=== PATIENT | female | born 1990 | race Caucasian/White ===

== ENCOUNTER 2016-10-17 08:20 | Emergency (ER) | payer OTHER ==
[~2016-10-17 08:20] MED LIST: ACETAMINOPHEN PO; ADDERALL 10 MG10 M1 PO; ADVIL100 MG; ALBUTEROL17 GM; ALBUTEROL17 GM INH; ALLEGRA PO; ALPRAZOLAM PO; AMBIEN PO; AMOXICILLIN PO; AZO STANDARD97.5 MG PO; BACTRIM DS TABL1 TA1 PO; BENTYL10 M1 PO; BENZONATATE PO; CELEXA10 MG PO; CELEXA20 MG PO; CIPRO; CIPRO PO; CIPRO250 MG PO; CLARITIN10 M2 PO; CLARITIN10 MG PO; CLINDAMYCIN HC300 MG PO; DEPO-PROVER150 MG/ML INJ; DIFLUCAN PO; DOXYCYCLINE HY100 M3 PO; ELIMITE60 GM TOP; FLAGYL PO; FLEXERIL10 M1 PO; FLINTSTONES T100 MCG PO; HYDROCODON-ACE118 ML; IBUPROFEN PO; K-DUR20 ME1 PO; LIDOCAINE VISCOU1 ML EXT; LORCET PLUS TAB1 TA1 PO; MACROBID100 M1 PO; MACROBID100 MG DOB; MACROBID100 MG PO; MEDROL PO; METRONIDAZOLE PO; MIRALAX17 GM PO; MORGIDOX100 MG PO; MOTRIN600 M1 PO; NEURONTIN PO; NEURONTIN600 MG; NO MEDICATIONS; PHENERGAN25 M1 PO; PHENTERMINE PO; PRENATAL1 TA1 PO; PROGESTERONE; PYRIDIUM PO; PYRIDIUM100 MG PO; TYLENOL #3 PO; VOLTAREN75 MG PO; WELLBUTRIN PO; ZOFRAN ODT4 MG PO; ZOFRAN PO; ZOLOFT PO; ZYRTEC PO
[2016-10-17] MEDS ORDERED: VALIUM PO (08:26)
[2016-10-17] MEDS ORDERED: HYDROCODONE PO (08:27)
[2016-10-17 09:04] LABS: INFLUENZA A NEG (NEG); INFLUENZA B NEG (NEG)
== END 2016-10-17 09:57 | disposition home or self-care (01) ==
LOC: SED 08:20
PROVIDERS: Emergency Medicine
DX: J01.00 Acute maxillary sinusitis, unspecified (principal); M26.629 Arthralgia of temporomandibular joint, unspecified side; I10 Essential (primary) hypertension; F17.200 Nicotine dependence, unspecified, uncomplicated
CPT/HCPCS: 87651; 87804; 96372; 99283; J1170; J2550

== ENCOUNTER 2016-12-06 17:19 | Emergency (ER) | payer OTHER ==
[~2016-12-06 17:19] MED LIST changes: +HYDROCODONE PO; +VALIUM PO
== END 2016-12-06 18:08 | disposition home or self-care (01) ==
LOC: SED 17:19
DX: H60.91 Unspecified otitis externa, right ear (principal); R68.84 Jaw pain; F17.210 Nicotine dependence, cigarettes, uncomplicated; Z79.899 Other long term (current) drug therapy
CPT/HCPCS: 96372; 99283; J1885